=== PATIENT | male | born 1980 | race Caucasian/White ===

== ENCOUNTER 2023-11-17 16:30 | Inpatient (IN) | payer MEDICAID, SELFPAY ==
[2023-11-17 16:39] VITALS: BP 119/77; PULSE 89; RESP 16; TEMP 36.6; O2SAT 97
[2023-11-17 16:41] VITALS: BMI 25.7
[2023-11-17] MEDS: OLANZapine 5 mg ODT PO (17:24)
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
[2023-11-17] MEDS: nicotine 4 mg lozenge MUCOUS MEM ×2 (18:21→20:34)
--- NOTE | 2023-11-17 18:23 | PC.NURSE ---
Upon admission, patient requested that his clothing be washed. Currently, [facility] is closed, This will be passed to oncoming shift.
[2023-11-17] MEDS: diazePAM 5 mg Tablet 10 MG PO (19:24)
[2023-11-17] MEDS: benzocaine 20% 7 gm 1 APPLIC MUCOUS MEM (19:25)
[2023-11-17 19:53] VITALS: BP 140/81; PULSE 93; RESP 18; TEMP 36.8; O2SAT 95
[2023-11-18 06:00] VITALS: BP 123/80; PULSE 84; RESP 16; TEMP 36.4; O2SAT 99
[2023-11-18] MEDS: nicotine 4 mg lozenge MUCOUS MEM ×5 (08:28→19:44)
--- NOTE | 2023-11-18 09:12 | PC.NURSE ---
Dr. Yanes contacted for prn orders for patient due to patient anxiety and other withdrawal symptoms. Dr. Yanes requested this RN put in orders for clonidine 0.1mg q4h prn and seroquel 25 mg q4hprn for anxiety and withdrawal symptoms, both meds po.
[2023-11-18 09:24] VITALS: BP 128/76
[2023-11-18] MEDS: cloNIDine 0.1 mg Tablet 0.100000000000000006 MG PO (09:24)
[2023-11-18] MEDS: quetiapine 25 mg Tablet PO (09:24)
[2023-11-18 14:00] VITALS: BP 136/88; PULSE 98; RESP 16; O2SAT 99
[2023-11-18] MEDS: benzocaine 20% 7 gm 1 APPLIC MUCOUS MEM (14:47)
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
[2023-11-18] MEDS: ARIPiprazole 10 mg Tablet 5 MG PO (17:02)
[2023-11-18] MEDS: buprenorphine-naloxone 4-1 mg Film 1 EACH SUBLINGUAL (17:02)
[2023-11-18 19:44] VITALS: BP 115/78; PULSE 97; RESP 18; TEMP 36.3; O2SAT 99
[2023-11-18] MEDS: diazePAM 5 mg Tablet 10 MG PO (19:44)
[2023-11-19 06:00] VITALS: BP 127/77; PULSE 84; RESP 16; TEMP 36.3; O2SAT 100
[2023-11-19] MEDS: nicotine 4 mg lozenge MUCOUS MEM (06:15)
[2023-11-19] MEDS: diazePAM 5 mg Tablet PO (08:04)
[2023-11-19] MEDS: ARIPiprazole 10 mg Tablet 5 MG PO (08:04)
[2023-11-19] MEDS: buprenorphine-naloxone 4-1 mg Film 1 EACH SUBLINGUAL ×2 (08:04→17:12)
[2023-11-19] MEDS: nicotine 21 mg Patch 1 PATCH TRANSDERMA (08:05)
[2023-11-19] MEDS: cetylpyridinium Lozenge 1 EACH MUCOUS MEM ×4 (11:29→20:07)
[2023-11-19 14:00] VITALS: BP 125/81; PULSE 86; RESP 20; TEMP 36.6; O2SAT 99
--- NOTE | 2023-11-19 15:45 | W.PM.NPUPNS ---
Subjective NPU Subjective: 43-year-old male with a history of schizophrenia and PTSD along with panic attacks admitted with suicidal ideation and auditory hallucinations in the context of having not taken his medication in several months. He had reported no opiate withdrawal symptoms today while reporting feeling much better with the addition of Suboxone at 8 mg/day. He had continued to report auditory hallucinations. He had reported that his suicidal thoughts were less intense. He reported that he felt much less anxious when taking the Valium routinely with no side effects reported. Staff notes patient was compliant on the milieu and was not aggressive. He reported at times feeling hopeless. He had indicated that he and his girlfriend were currently homeless. Mental Status Exam MSE Comments: Patient is a slightly overweight white male with improved hygiene and normal gait with no evidence of any abnormal involuntary motor movements tics or tremors.His mood was described as better. His affect was restricted and mood incongruent. His speech was normal in regards to rate rhythm and prosody. His thought process was linear logical and goal-directed. He endorsed no suicidal ideation. He denied homicidal ideation. He endorsed auditory hallucinations that were not of a command nature. There was evidence of paranoia although there was no evidence of overt delusions. His recent and remote memory appear grossly intact. His insight was poor. His judgment was poor. His impulse control appeared poor as well. Vitals/I&O/Wt Last Vital Signs Temp 97.8 F 11/19/23 14:00 Pulse 86 11/19/23 14:00 Resp 20 H 11/19/23 14:00 BP 125/81 11/19/23 14:00 Pulse Ox 99 11/19/23 14:00 O2 Del Method Room Air 11/18/23 14:00 Weight last 48 hrs Weight 95.436 kg Weight 83.915 kg A&P Assessment and plan (1) Schizophrenia, acute: (2) PTSD (post-traumatic stress disorder): (3) Panic attacks: (4) Opioid dependence: Plan 43-year-old male with multiple psychiatric issues admitted with suicidal ideation with hx of multiple inpatient hospitalizations and active substance abuse with history of PTSD, schizophrenia and panic attacks. 1.? Engage patient in individual milieu and group therapy. #2?? Recommend sober living treatment at the highest level of care to which the patient is willing to commit #3?? TO-15 minute checks #4?? Will attempt to gather collateral information #5 Continue Valium 5mg in am, 10mg at night. Add Gabapentin as previously prescribed. #6 Suboxone 4/ bid target opioid dependence #7 Abilify increase to 10mg daily to target psychosis. Involuntary Hold Information 96 Hour Hold: 96 Hour Involuntary Admission: No Attestations NPU Medical Necessity Statement*: Inpatient hospitalization is medically necessary and deemed to ?be ?the clinically appropriate intervention ?at this time.? We will monitor/initiate medications and make changes as indicated.? ? The patient?s likely length of stay 5-7 days. Coding Level of Care Code Acute Code for [facility] Fwd Diagnoses Schizophrenia, acute F23 PTSD (post-traumatic stress disorder) F43.10 Panic attacks F41.0 Opioid dependence F11.20
[2023-11-19] MEDS: gabapentin 400 mg Capsule 800 MG PO (20:02)
[2023-11-19] MEDS: diazePAM 5 mg Tablet 10 MG PO (20:02)
[2023-11-19 22:00] VITALS: BP 127/89; PULSE 68; RESP 16; TEMP 36.4; O2SAT 98
[2023-11-19] MEDS: trazodone 50 mg Tablet PO (23:47)
[2023-11-20] MEDS: cetylpyridinium Lozenge 1 EACH MUCOUS MEM ×4 (05:37→16:56)
[2023-11-20 06:00] VITALS: BP 122/74; PULSE 79; RESP 16; TEMP 36.6; O2SAT 98
[2023-11-20] MEDS: gabapentin 400 mg Capsule 800 MG PO ×3 (08:09→20:30)
[2023-11-20] MEDS: diazePAM 5 mg Tablet PO (08:09)
[2023-11-20] MEDS: ARIPiprazole 10 mg Tablet PO (08:09)
[2023-11-20] MEDS: buprenorphine-naloxone 4-1 mg Film 1 EACH SUBLINGUAL ×2 (08:09→17:03)
[2023-11-20] MEDS: nicotine 21 mg Patch 1 PATCH TRANSDERMA (08:09)
[2023-11-20] MEDS: ondansetron 4 MG Tablet PO (11:55)
[2023-11-20 14:00] VITALS: BP 129/73; PULSE 87; RESP 20; TEMP 36.6; O2SAT 97
--- NOTE | 2023-11-20 14:12 | W.PM.NPUPNS ---
Subjective NPU Subjective: 43-year-old male with a history of schizophrenia and PTSD along with panic attacks admitted with suicidal ideation and auditory hallucinations in the context of having not taken his medication in several months. Patient had continued to report hearing voices and reported continued paranoia and distrust towards others. He reported having less withdrawal symptoms with Suboxone. He reported his anxiety had been better. He remains somewhat isolative on the milieu. He had reported that he would stay with his friend when discharged from here. He was accepting of needing medication management and has begun filling out a referral to receive outpatient services under Dr. Schultz in [place]. He had reported insomnia but reported having kept his nicotine patch on until late at night leading to insomnia. Mental Status Exam MSE Comments: Patient is a slightly overweight white male with poor hygiene and normal gait with no evidence of any abnormal involuntary motor movements tics or tremors. His mood was described as okay. His affect was restricted in range and mood incongruent. His speech was normal in regards to rate rhythm and prosody. His thought process was linear logical and goal-directed. He endorsed no suicidal ideation. He denied homicidal ideation. He endorsed auditory hallucinations that were not of a command nature. There was evidence of paranoia although there was no evidence of overt delusions. His recent and remote memory appear grossly intact. His insight was poor. His judgment was poor. His impulse control appeared poor as well. Vitals/I&O/Wt Last Vital Signs Temp 97.9 F 11/20/23 06:00 Pulse 79 11/20/23 06:00 Resp 16 11/20/23 06:00 BP 122/74 11/20/23 06:00 Pulse Ox 98 11/20/23 06:00 O2 Del Method Room Air 11/20/23 06:00 A&P Assessment and plan (1) Schizophrenia, acute: (2) PTSD (post-traumatic stress disorder): (3) Panic attacks: (4) Opioid dependence: Plan 43-year-old male with multiple psychiatric issues admitted with suicidal ideation with hx of multiple inpatient hospitalizations and active substance abuse with history of PTSD, schizophrenia and panic attacks. 1.? Engage patient in individual milieu and group therapy. #2?? Recommend sober living treatment at the highest level of care to which the patient is willing to commit #3?? TO-15 minute checks #4?? Will attempt to gather collateral information #5 Continue Valium 5mg in am, 10mg at night. Add Gabapentin as previously prescribed. #6 Suboxone 10/07 bid target opioid dependence #7 Abilify increase to 15mg daily. Involuntary Hold Information 96 Hour Hold: 96 Hour Involuntary Admission: No Attestations NPU Medical Necessity Statement*: Inpatient hospitalization is medically necessary and deemed to ?be ?the clinically appropriate intervention ?at this time.? We will monitor/initiate medications and make changes as indicated.? ? The patient?s likely length of stay 5-7 days. Coding Level of Care Code Acute Code for [facility] Fwd Diagnoses Schizophrenia, acute F23 PTSD (post-traumatic stress disorder) F43.10 Panic attacks F41.0 Opioid dependence F11.20
[2023-11-20 20:19] VITALS: BP 151/105; PULSE 92; RESP 16; O2SAT 94
[2023-11-20] MEDS: diazePAM 5 mg Tablet 10 MG PO (20:31)
[2023-11-20] MEDS: trazodone 50 mg Tablet PO (23:02)
[2023-11-21 06:00] VITALS: BP 153/80; PULSE 84; RESP 16; O2SAT 99
[2023-11-21] MEDS: nicotine 4 mg lozenge MUCOUS MEM ×6 (06:47→20:03)
[2023-11-21] MEDS: gabapentin 400 mg Capsule 800 MG PO ×3 (08:09→20:04)
[2023-11-21] MEDS: diazePAM 5 mg Tablet PO (08:09)
[2023-11-21] MEDS: buprenorphine-naloxone 4-1 mg Film 1 EACH SUBLINGUAL ×2 (08:10→17:05)
[2023-11-21] MEDS: ARIPiprazole 10 mg Tablet 15 MG PO (08:10)
[2023-11-21] MEDS: benzocaine 20% 7 gm 1 APPLIC MUCOUS MEM ×2 (08:15→15:29)
[2023-11-21] MEDS: cetylpyridinium Lozenge 1 EACH MUCOUS MEM (13:56)
[2023-11-21 14:00] VITALS: BP 148/100; PULSE 89; RESP 16; TEMP 36.6; O2SAT 95
[2023-11-21 15:31] VITALS: BP 148/100
[2023-11-21] MEDS: cloNIDine 0.1 mg Tablet 0.100000000000000006 MG PO (15:31)
[2023-11-21 16:44] VITALS: BP 145/87
--- NOTE | 2023-11-21 17:29 | P.NPUPN_ITS ---
Subjective NPU Subjective: 43-year-old male with a history of schiz ophrenia and PTSD along with panic attacks admitted with suicidal ideation and auditory hallucinations in the context of having not taken his medication in several months. He reported no opiate withdrawal symptoms. He reported having less anxiety with the Valium. He was pleasant and cooperative on the milieu. He had reported that his mood was getting better. He had reported that he was feeling less paranoid. He had reported having chronic problems with anxiety and stated that he continued to have PTSD related symptoms including being excessively on edge. The patient reported his depression was better. He had tolerated his medication well with no reports of side effects on the Abilify. He had reported that he was currently homeless but was working on finding a place to stay with his girlfriend. Mental Status Exam MSE Comments: Patient is a slightly overweight white male with poor hygiene and normal gait with no evidence of any abnormal involuntary motor movements tics or tremors. His mood was described as better. His affect was restricted in range and mood incongruent. His speech was normal in regards to rate rhythm and prosody. His thought process was linear, logical and goal-directed. He endorsed no suicidal ideation. He denied homicidal ideation. He denied auditory hallucinations today. There was evidence of paranoia although there was no evidence of overt delusions. His recent and remote memory appear grossly intact. His insight was poor. His judgment was poor. His impulse control appeared to be improving. Vitals/I&O/Wt Last Vital Signs Temp 97.9 F 11/21/23 14:00 Pulse 89 11/21/23 14:00 Resp 16 11/21/23 14:00 BP 145/87 11/21/23 16:44 Pulse Ox 95 11/21/23 14:00 O2 Del Method Room Air 11/21/23 14:00 A&P Assessment and plan (1) Schizophrenia, acute: (2) PTSD (post-traumatic stress disorder): (3) Panic attacks: (4) Opioid dependence: Plan 43-year-old male with multiple psychiatric issues admitted with suicidal ideation with hx of multiple inpatient hospitalizations and active substance abuse with history of PTSD, schizophrenia and panic attacks. 1.? Engage patient in individual milieu and group therapy. #2?? Recommend sober living treatment at the highest level of care to which the patient is willing to commit #3?? TO-15 minute checks #4 Continue Valium 5mg in am, 10mg at night. #5 Continue Gabapentin as prescribed. #6 Suboxone 4/ bid target opioid dependence #7 Continue Abilify 15mg daily. Involuntary Hold Information 96 Hour Hold: 96 Hour Involuntary Admission: No Attestations NPU Medical Necessity Statement*: Inpatient hospitalization is medically necessary and deemed to ?be ?the clinically appropriate intervention ?at this time.? We will monitor/initiate medications and make changes as indicated.? ? The patient?s likely length of stay is 2-3 days. Coding Level of Care Code Acute Code for [facility] Fwd Diagnoses Schizophrenia, acute F23 PTSD (post-traumatic stress disorder) F43.10 Panic attacks F41.0 Opioid dependence F11.20
[2023-11-21] MEDS: diazePAM 5 mg Tablet 10 MG PO (20:03)
[2023-11-21 21:27] VITALS: BP 146/99; PULSE 92; RESP 18; TEMP 36.8; O2SAT 97
[2023-11-22 06:00] VITALS: BP 132/75; PULSE 78; RESP 17; TEMP 36.4; O2SAT 97
[2023-11-22] MEDS: nicotine 4 mg lozenge MUCOUS MEM ×4 (06:14→13:15)
[2023-11-22] MEDS: gabapentin 400 mg Capsule 800 MG PO ×2 (08:21→14:19)
[2023-11-22] MEDS: ARIPiprazole 10 mg Tablet 15 MG PO (08:21)
[2023-11-22] MEDS: diazePAM 5 mg Tablet PO (08:22)
[2023-11-22] MEDS: buprenorphine-naloxone 4-1 mg Film 1 EACH SUBLINGUAL ×2 (08:22→17:17)
--- NOTE | 2023-11-22 09:13 | PC.NURSE ---
PT DENIES PAIN. SITTING IN ROOM. DENIES SI/HI AT THIS TIME, CONTINUES TO ENDORSE HEARING HIS WIVES VOICE STATES ITS NEGATIVE IF HE IS DOING BAD AND GOOD IF I'M DOING GOOD. PT IS WITHDRAWN AND AT TIMES SOMATIC. RATES DEPRESSION02/15 AND ANXIETY 04/17. SCHEDULED VALIUM GIVEN ORDERED. PT GOAL FOR THE DAY IS TO LEAVE I HOPE. ALL QUESTIONS ANSWERED AND SUPPORT WAS VOICED.
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
[2023-11-22 13:58] VITALS: BP 129/93; PULSE 84; RESP 17; TEMP 36.8; O2SAT 97
[2023-11-22 14:03] VITALS: BP 129/93; PULSE 84; RESP 17; TEMP 36.8; O2SAT 97
[2023-11-22] MEDS: OLANZapine 5 mg ODT PO (14:20)
--- NOTE | 2023-11-22 17:29 | PC.NURSE ---
[place] [employer] CALLED AT APPROXIMATELY [phone] AND INFORMED TO HAVE PT READY IN 30 MINUTES. PT WAS READY AND SITTING IN WAITING IN AT 1500, LATER [place] [employer] CONTACTED [employer] STATING THEY NEVER CALLED AND COULD NOT GET PT A RIDE. PT SAT IN WAITING ROOM UNTIL 1728 WHEN HE WAS DISCHARGED AFTER [facility] AND HOSP[facility] PAID FOR AN UBER RIDE FOR PT TO GO TO [place].
== END 2023-11-22 17:28 | disposition home or self-care (01) | DRG 885 ==
PROVIDERS: Admitting Provider Psychiatry & Neurology Psychiatry; Visit Provider Psychiatry & Neurology Psychiatry
DX: F20.9 Schizophrenia, unspecified (principal); F11.20 Opioid dependence, uncomplicated; R45.851 Suicidal ideations; Z59.00 Homelessness unspecified; F43.12 Post-traumatic stress disorder, chronic; F41.0 Panic disorder [episodic paroxysmal anxiety]; Z62.810 Personal history of physical and sexual abuse in childhood
CPT/HCPCS: 97150; 97165; J0573; Q0162